=== PATIENT | female | born 1940 | race Caucasian/White ===

== ENCOUNTER → 2017-03-21 | Outpatient (REF) | payer MEDICARE, OTHER ==
[~2017-03-21] MED LIST: AMLO5TAB2 PO; ASPI1TAB PO; ATEN25TA PO; CALCTAB68 PO; CODCAP PO; Clopidogrel Bisulfate PO; LIPI20TA PO; VITA100066 PO; VITMTA PO
[2017-03-21 15:11] LABS: ANION GAP 7 MEQ/L (8-16); BLOOD UREA NITROGEN 15 MG/DL (7-18); CALCIUM LEVEL 9.3 MG/DL (8.8-10.2); CARBON DIOXIDE LEVEL 30 MEQ/L (21-32); CHLORIDE LEVEL 104 MEQ/L (98-107); CREATININE FOR GFR 0.87 MG/DL (0.55-1.02); GLOMERULAR FILTRATION RATE > 60.0 (>39); GLUCOSE, FASTING 98 MG/DL (83-110); POTASSIUM SERUM 4.7 MEQ/L (3.5-5.1); SODIUM LEVEL 141 MEQ/L (136-145)
== END ==
LOC: M SFHCPLAZ 10:49
PROVIDERS: ATTEND Family Medicine
DX: I11.9 Hypertensive heart disease without heart failure (principal)

== ENCOUNTER → 2017-04-27 | Outpatient (CLI) | payer MEDICARE, OTHER ==
--- NOTE | 2017-04-27 13:32 | REP ---
BILATERAL MAMMOGRAM: Bilateral mammography performed in the MLO and CC projections. Comparison 04/26/2016 as well as multiple other prior exams. There is mild to moderate scattered fibroglandular tissue bilaterally with no new mass or architectural distortion. On the left CC view the posteriorly and somewhat medially tiny calcific densities are seen. These are not seen on the MLO view. No other mass or clustered microcalcifications are seen. IMPRESSION: ACR 0 incomplete. Tiny calcific densities seen far posteriorly and medially on the left CC view. These are not seen on the left MLO view. Possible dermal calcifications. Recommend magnification views for further evaluation. At the time of the additional views the patient should thoroughly clean her breast skin to eliminate the possibility of any foreign material on the skin. This mammogram was interpreted with the aid of an FDA-approved computer-aided detection system. The patient states she/he had a clinical breast exam in 03/2017. The patient letter being requested is M0.
== END ==
LOC: M WHC 11:19
PROVIDERS: ATTEND Family Medicine
DX: Z12.31 Encounter for screening mammogram for malignant neoplasm of breast (principal)

== ENCOUNTER → 2017-05-03 | Outpatient (CLI) | payer MEDICARE, OTHER ==
--- NOTE | 2017-05-03 12:38 | REP ---
DIAGNOSTIC DIGITAL LEFT MAMMOGRAM: 05/03/2017 COMPARISON: Screening examination 04/27/2017, 04/26/2016. CLINICAL HISTORY: Calcific densities far posteriorly and medially on CC view of recent mammogram on the left, not on the MLO view. Further diagnostic workup of these calcifications needed. FINDINGS: Magnified CC imaging of the left breast posteromedial aspect with markers over the skin lesions or tags close to the chest wall. These correspond in location to the region of the calcifications seen on the mammogram. These magnified views do show calcifications along the two markers. The tangential view confirms that these calcifications are in the skin at the inframammary fold immediately adjacent to one of those mole markers. IMPRESSION: 1. BIRADS ACR category 2, benign. Benign finding. No evidence of malignancy. The mammographic finding on the 04/27/2017 screening examination is confirmed as skin calcifications in a skin mole or lesion on magnified CC and true ML tangential view. No evidence of malignancy. 2. Recommend annual followup mammography in 1 year. This mammogram was interpreted with the aid of an FDA-approved computer-aided detection system. A. Negative x-ray reports should not delay biopsy if a dominant or clinically suspicious mass is present. B. Four to eight percent of cancers are not identified by x-ray. C. Adenosis and dense breasts may obscure an underlying neoplasm. The patient states she/he had a clinical breast exam in March 2017. The patient letter being requested is M1. BI-RADS/ACR category 2 mammogram. Benign finding(s). Routine annual screening mammography (for women over age 40). Signed by Salvador Wren MD 05/03/2017 07:08 P
== END ==
LOC: M RAD 11:24
PROVIDERS: ATTEND Family Medicine
DX: R92.8 Other abnormal and inconclusive findings on diagnostic imaging of breast (principal)

== ENCOUNTER → 2017-10-03 | Outpatient (REF) | payer MEDICARE, OTHER | LOC: M LAB REF 18:12 | DX: C44.619 Basal cell carcinoma of skin of left upper limb, including shoulder (principal) | CPT/HCPCS: 88305 ==

== ENCOUNTER → 2018-03-14 | Outpatient (REF) | payer MEDICARE, OTHER ==
[2018-03-14 13:20] LABS: ANION GAP 8 MEQ/L (8-16); BLOOD UREA NITROGEN 18 MG/DL (7-18); CALCIUM LEVEL 9.6 MG/DL (8.8-10.2); CARBON DIOXIDE LEVEL 30 MEQ/L (21-32); CHLORIDE LEVEL 106 MEQ/L (98-107); CREATININE FOR GFR 1.02 MG/DL (0.55-1.30); GLOMERULAR FILTRATION RATE 55.7 (>39); GLUCOSE, FASTING 99 MG/DL (70-100); POTASSIUM SERUM 4.4 MEQ/L (3.5-5.1); SODIUM LEVEL 144 MEQ/L (136-145)
== END ==
LOC: M SFHCPLAZ 10:21
DX: I11.9 Hypertensive heart disease without heart failure (principal)
CPT/HCPCS: 80048

== ENCOUNTER → 2018-04-12 | Outpatient (REF) | payer MEDICARE, OTHER | LOC: M LAB REF 09:52 | DX: L90.5 Scar conditions and fibrosis of skin (principal) | CPT/HCPCS: 88305 ==

== ENCOUNTER → 2018-05-07 | Outpatient (CLI) | payer MEDICARE, OTHER | LOC: M RAD 10:44 | DX: Z12.31 Encounter for screening mammogram for malignant neoplasm of breast (principal) | CPT/HCPCS: 77067 ==

== ENCOUNTER → 2018-09-13 | Outpatient (REF) | payer MEDICARE, OTHER ==
[2018-09-13 13:55] LABS: ANION GAP 7 MEQ/L (8-16); BLOOD UREA NITROGEN 16 MG/DL (7-18); CALCIUM LEVEL 9.4 MG/DL (8.8-10.2); CARBON DIOXIDE LEVEL 30 MEQ/L (21-32); CHLORIDE LEVEL 105 MEQ/L (98-107); CHOLESTEROL LEVEL 201 MG/DL (<200); CREATININE FOR GFR 0.99 MG/DL (0.55-1.30); GLOMERULAR FILTRATION RATE 57.5 (>32); GLUCOSE, FASTING 106 MG/DL (70-100); HDL CHOLESTEROL 64 MG/DL (>40); LDL CHOLESTEROL 106 MG/DL (<100); NON-HDL-C 137 MG/DL; POTASSIUM SERUM 4.1 MEQ/L (3.5-5.1); SODIUM LEVEL 142 MEQ/L (136-145); TOTAL 25(OH) VITAMIN D 102.3 NG/ML (30.0-100.0); TRIGLYCERIDES LEVEL 157 MG/DL (<150)
== END ==
LOC: M SFHCPLAZ 10:49
DX: E78.5 Hyperlipidemia, unspecified (principal); I11.9 Hypertensive heart disease without heart failure; Z86.39 Personal history of other endocrine, nutritional and metabolic disease
CPT/HCPCS: 82306

== ENCOUNTER → 2018-12-25 | Outpatient (REF) | payer MEDICARE, OTHER ==
[~2018-12-25] MED LIST changes: -AMLO5TAB2 PO; +AMLO5TAB6 PO; -CODCAP PO; +CODCAP4 PO
== END ==
LOC: M SFHCPLAZ 10:20
PROVIDERS: ATTEND Nurse Practitioner Family
DX: Z86.39 Personal history of other endocrine, nutritional and metabolic disease (principal)

== ENCOUNTER → 2019-05-09 | Outpatient (CLI) | payer MEDICARE, OTHER ==
[~2019-05-09] MED LIST changes: -ASPI1TAB PO; +ASPI81TA26 PO; -CODCAP4 PO; +CODCAP5 PO
--- NOTE | 2019-05-09 11:49 | REPMRS ---
Patient History The patient states she has not had a clinical breast exam in over a year. No known family history of cancer. Took hormonal contraceptives for 2 years. Took unspecified hormones for 3 years. 3D TOMOSYNTHESIS WAS PERFORMED. The George Estrada lifetime risk for breast cancer is 1.9%. Digital Mammo Screening Bilat: May 09, 2019 - Exam #: [id number] Bilateral CC and MLO view(s) were taken. Technologist: Niecy Sears, Technologist Prior study comparison: May 07, 2018, bilateral digital mammo screening bilat performed at [facility]. May 03, 2017, left breast digital mammo diagnostic unilateral performed at [facility]. FINDINGS: The breast tissue is heterogeneously dense. This may lower the sensitivity of mammography. There has been no change in the appearance of the mammogram from the prior studies. There is a moderate amount of residual fibroglandular tissue which is fairly symmetric. There is no interval development of dominant mass, areas of architectural distortion, or clustered microcalcification typical of malignancy. Assessment: BI-RADS/ACR category 1 mammogram. Negative Mammogram. Recommendation Routine screening mammogram in 1 year (for women over age 40). This mammogram was interpreted with the aid of an FDA-approved computer-aided dectection system. Electronically Signed By: Pietro Argueta MD 05/09/19 [id number]
== END ==
LOC: M RAD 10:49
PROVIDERS: ATTEND Family Medicine
DX: Z12.31 Encounter for screening mammogram for malignant neoplasm of breast (principal)

== ENCOUNTER → 2019-10-09 | Outpatient (CLI) | payer MEDICARE, OTHER ==
[2019-10-09 10:59] LABS: CALCIUM LEVEL 9.8 MG/DL (8.8-10.2); CHOLESTEROL RISK RATIO 2.942 (<5); CREATININE FOR GFR 1.04 MG/DL (0.55-1.30); GLOMERULAR FILTRATION RATE 54.1 (>32); POTASSIUM SERUM 4.1 MEQ/L (3.5-5.1)
[2019-10-09 11:00] LABS: TOTAL 25(OH) VITAMIN D 66.8 NG/ML (30.0-100.0)
== END ==
LOC: M LAB 09:31
PROVIDERS: ATTEND Family Medicine
DX: I11.9 Hypertensive heart disease without heart failure (principal); E78.5 Hyperlipidemia, unspecified; Z86.39 Personal history of other endocrine, nutritional and metabolic disease; Z79.899 Other long term (current) drug therapy

== ENCOUNTER → 2019-10-11 | Outpatient (CLI) | payer MEDICARE, OTHER ==
[2019-10-11 10:38] LABS: HEMOGLOBIN A1c 6.2 %
== END ==
LOC: M LAB 09:27
PROVIDERS: ATTEND Family Medicine
DX: R73.01 Impaired fasting glucose (principal)

== ENCOUNTER → 2020-03-24 | Outpatient (CLI) | payer MEDICARE, OTHER ==
[2020-03-24 10:54] LABS: BLOOD UREA NITROGEN 18 MG/DL (7-18); CALCIUM LEVEL 9.4 MG/DL (8.8-10.2); CARBON DIOXIDE LEVEL 31 MEQ/L (21-32); CHLORIDE LEVEL 108 MEQ/L (98-107); CREATININE FOR GFR 0.88 MG/DL (0.55-1.30); GLOMERULAR FILTRATION RATE > 60.0 (>32); GLUCOSE, FASTING 100 MG/DL (70-100); POTASSIUM SERUM 4.4 MEQ/L (3.5-5.1); SODIUM LEVEL 142 MEQ/L (136-145)
[2020-03-24 10:59] LABS: HEMOGLOBIN A1c 6.3 %
== END ==
LOC: M LAB 09:46
PROVIDERS: ATTEND Family Medicine
DX: R73.03 Prediabetes (principal); I11.9 Hypertensive heart disease without heart failure

== ENCOUNTER → 2020-05-12 | Outpatient (CLI) | payer MEDICARE, OTHER ==
[~2020-05-12] MED LIST changes: +AMLO1TAB24 PO; -AMLO5TAB6 PO
--- NOTE | 2020-05-28 14:40 | REPMRS ---
Patient History The patient states she has not had a clinical breast exam in over a year. Patient is postmenopausal. No known family history of cancer. Took hormonal contraceptives for 2 years. Took unspecified hormones for 3 years. Digital Woman Screen Mammo: May 12, 2020 - Exam #: [id number] Bilateral CC and MLO view(s) were taken. Technologist: Connie James, Technologist Prior study comparison: May 09, 2019, bilateral digital mammo screening bilat, performed at [facility]. May 07, 2018, bilateral digital mammo screening bilat, performed at [facility]. May 03, 2017, left breast digital mammo diagnostic unilateral, performed at [facility]. FINDINGS: There are scattered fibroglandular densities. The Volpara volumetric breast density category is:B. There has been no change in the appearance of the mammogram from the prior studies. There is a mild amount of scattered fibroglandular density which is fairly symmetric. There is no interval development of dominant mass, architectural distortion, or grouped microcalcification suggestive of malignancy. 3-D tomosynthesis shows no additional findings. Assessment: BI-RADS/ACR category 1 mammogram. Negative Mammogram. Recommendation Routine screening mammogram of both breasts in 1 year (for women over age 40). This patient's Lifetime Breast Cancer Risk is estimated at 1.6 %. This mammogram was interpreted with the aid of an FDA-approved computer-aided dectection system. Electronically Signed By: Toby Bonilla MD 05/28/20 [id number]
--- NOTE | 2020-06-18 15:52 | DEXA ---
AP SPINE L1 - L4 1.480 2.3 4.2 LT FEMUR TOTAL 1.121 0.9 3.0 LT NECK 1.042 0.0 2.3 RT FEMUR TOTAL 1.096 0.7 2.8 RT NECK 0.983 -0.4 1.8 TOTAL BODY TOTAL OTHER COMMENTS: Normal Bone Densitometry of the spine and hips. The increased density of the spine does represent a significant change. The increased density of the left hip does represent a significant change. The decreased density of the right hip does represent significant change. The density of the spine has increased 6.2% since the initial exam on 01/24/2000. The increased 8.8% since the most recent exam on 04/16/2012. The density of the left hip has increased 4.1% since the initial exam on 01/24/2000. The density of the left hip has increased 3.9% since the most recent exam on 04/16/2012. The density of the right hip has increased 3.3% since the most recent exam on 01/24/2000. The density of the right hip has decreased 4.3% since the most recent exam on 04/16/2012. FOLLOW-UP: Recommendation for the next bone density exam: 5 years. ALBERTD
== END ==
LOC: M WHC 07:03
PROVIDERS: ATTEND Family Medicine
DX: Z12.31 Encounter for screening mammogram for malignant neoplasm of breast (principal); M85.88 Other specified disorders of bone density and structure, other site; M85.851 Other specified disorders of bone density and structure, right thigh; M85.852 Other specified disorders of bone density and structure, left thigh; M81.0 Age-related osteoporosis without current pathological fracture

== ENCOUNTER → 2021-03-15 | Outpatient (CLI) | payer MEDICARE, OTHER ==
[2021-03-15 12:23] LABS: BLOOD UREA NITROGEN 15 MG/DL (7-18); CALCIUM LEVEL 9.4 MG/DL (8.8-10.2); CARBON DIOXIDE LEVEL 31 MEQ/L (21-32); CHLORIDE LEVEL 107 MEQ/L (98-107); CHOLESTEROL LEVEL 181 MG/DL (<200); CHOLESTEROL RISK RATIO 2.742 (<5); CREATININE FOR GFR 0.86 MG/DL (0.55-1.30); GLOMERULAR FILTRATION RATE > 60.0 (>32); GLUCOSE, FASTING 111 MG/DL (70-100); HDL CHOLESTEROL 66 MG/DL (>40); LDL CHOLESTEROL 87 MG/DL (<100); NON-HDL-C 115 MG/DL; POTASSIUM SERUM 4.9 MEQ/L (3.5-5.1); SODIUM LEVEL 142 MEQ/L (136-145); TRIGLYCERIDES LEVEL 142 MG/DL (<150)
[2021-03-15 15:16] LABS: HEMOGLOBIN A1c 5.8 %
== END ==
LOC: M LAB 10:50
PROVIDERS: ATTEND Family Medicine
DX: I11.9 Hypertensive heart disease without heart failure (principal); E78.2 Mixed hyperlipidemia; R73.03 Prediabetes

== ENCOUNTER → 2021-09-13 | Outpatient (CLI) | payer MEDICARE, OTHER ==
[2021-09-13 12:19] LABS: BLOOD UREA NITROGEN 15 MG/DL (7-18); CALCIUM LEVEL 9.8 MG/DL (8.8-10.2); CARBON DIOXIDE LEVEL 32 MEQ/L (21-32); CHLORIDE LEVEL 105 MEQ/L (98-107); CREATININE FOR GFR 0.91 MG/DL (0.55-1.30); GLOMERULAR FILTRATION RATE > 60.0 (>32); GLUCOSE, FASTING 114 MG/DL (70-100); POTASSIUM SERUM 4.3 MEQ/L (3.5-5.1); SODIUM LEVEL 140 MEQ/L (136-145)
== END ==
LOC: M LAB 11:07
PROVIDERS: ATTEND Family Medicine
DX: I11.9 Hypertensive heart disease without heart failure (principal)

== ENCOUNTER → 2022-05-31 | Outpatient (CLI) | payer MEDICARE, OTHER ==
[2022-05-31 12:53] LABS: CHOLESTEROL RISK RATIO 2.705 (<5)
[2022-05-31 13:28] LABS: TOTAL 25(OH) VITAMIN D 74.3 NG/ML (30.0-100.0)
== END ==
LOC: M LAB 11:18
PROVIDERS: ATTEND Nurse Practitioner Adult Health
DX: R73.03 Prediabetes (principal); E78.2 Mixed hyperlipidemia; Z86.39 Personal history of other endocrine, nutritional and metabolic disease; Z79.899 Other long term (current) drug therapy

== ENCOUNTER → 2022-06-23 | Outpatient (CLI) | payer MEDICARE, OTHER | LOC: M WHC 10:48 | PROVIDERS: ATTEND Nurse Practitioner Adult Health | DX: Z12.31 Encounter for screening mammogram for malignant neoplasm of breast (principal) ==

== ENCOUNTER → 2023-01-23 | Outpatient (CLI) | payer MEDICARE, OTHER ==
[2023-01-23 12:23] LABS: ALBUMIN 3.8 G/DL (3.2-5.2); ALKALINE PHOSPHATASE 94 U/L (46-116); ALT/SGPT 26 U/L (7.0-40); AST/SGOT 26 U/L (<34); BILIRUBIN,TOTAL 0.4 MG/DL (0.3-1.2); BLOOD UREA NITROGEN 13 MG/DL (9-23); CALCIUM LEVEL 9.5 MG/DL (8.3-10.6); CARBON DIOXIDE LEVEL 30 MMOL/L (20-31); CHLORIDE LEVEL 106 MMOL/L (98-107); CHOLESTEROL LEVEL 175 MG/DL (<200); CHOLESTEROL RISK RATIO 2.69 (<5); CREATININE FOR GFR 0.84 MG/DL (0.55-1.30); GLOMERULAR FILTRATION RATE > 60.0 (>32); GLUCOSE, FASTING 100 MG/DL (74-106); HDL CHOLESTEROL 64.9 MG/DL (>40); LDL CHOLESTEROL 80.1 MG/DL (<100); NON-HDL-C 110.1 MG/DL; POTASSIUM SERUM 4.4 MMOL/L (3.5-5.1); SODIUM LEVEL 141 MMOL/L (136-145); TOTAL PROTEIN 7.2 G/DL (5.7-8.2); TRIGLYCERIDES LEVEL 150 MG/DL (<150)
[2023-01-23 12:25] LABS: TOTAL 25(OH) VITAMIN D 67.9 NG/ML (20.0-100.0)
[2023-01-23 15:11] LABS: HEMOGLOBIN A1c 5.9 % (4.0-6.0)
== END ==
LOC: M LAB 11:03
PROVIDERS: ATTEND Nurse Practitioner Adult Health
DX: R73.03 Prediabetes (principal); E78.2 Mixed hyperlipidemia; Z86.39 Personal history of other endocrine, nutritional and metabolic disease; Z79.899 Other long term (current) drug therapy

== ENCOUNTER → 2023-07-25 | Outpatient (CLI) | payer MEDICARE, OTHER ==
[2023-07-25 11:53] LABS: HEMATOCRIT 36.8 % (36.0-47.0); HEMOGLOBIN 12.1 g/dl (12.0-15.5); MEAN CORPUSCULAR HEMOGLOBIN 30.9 pg (27.0-33.0); MEAN CORPUSCULAR HGB CONC 32.9 g/dl (32.0-36.5); MEAN CORPUSCULAR VOLUME 94.1 fl (80.0-96.0); PLATELET COUNT, AUTOMATED 175 10^3/uL (150-450); RED BLOOD COUNT 3.91 10^6/uL (4.00-5.40); WHITE BLOOD COUNT 10.3 10^3/uL (4.0-10.0)
[2023-07-25 12:21] LABS: HEMOGLOBIN A1c 5.8 % (4.0-6.0)
[2023-07-25 12:22] LABS: ALBUMIN 3.9 G/DL (3.2-5.2); ALKALINE PHOSPHATASE 94 U/L (46-116); ALT/SGPT 20 U/L (7.0-40); AST/SGOT 21 U/L (<34); BILIRUBIN,TOTAL 0.6 MG/DL (0.3-1.2); BLOOD UREA NITROGEN 15 MG/DL (9-23); CALCIUM LEVEL 9.7 MG/DL (8.3-10.6); CARBON DIOXIDE LEVEL 30 MMOL/L (20-31); CHLORIDE LEVEL 104 MMOL/L (98-107); CHOLESTEROL LEVEL 165 MG/DL (<200); CHOLESTEROL RISK RATIO 2.56 (<5); CREATININE FOR GFR 0.89 MG/DL (0.55-1.30); GLOMERULAR FILTRATION RATE > 60.0 (>32); GLUCOSE, FASTING 99 MG/DL (74-106); HDL CHOLESTEROL 64.3 MG/DL (>40); LDL CHOLESTEROL 73.3 MG/DL (<100); NON-HDL-C 100.7 MG/DL; POTASSIUM SERUM 4.2 MMOL/L (3.5-5.1); SODIUM LEVEL 142 MMOL/L (136-145); TRIGLYCERIDES LEVEL 137 MG/DL (<150)
[2023-07-25 12:23] LABS: TOTAL 25(OH) VITAMIN D 65.2 NG/ML (20.0-100.0)
== END ==
LOC: M LAB 10:36
PROVIDERS: ATTEND Nurse Practitioner Adult Health
DX: R73.03 Prediabetes (principal); E78.00 Pure hypercholesterolemia, unspecified

== ENCOUNTER → 2024-06-13 | Outpatient (CLI) | payer MEDICARE, OTHER ==
[~2024-06-13] MED LIST changes: +COD1CAPS3 PO; -CODCAP5 PO
[2024-06-13 17:49] LABS: BASO # 0.1 10^3/uL (0.0-0.2); BASO % 0.5 % (0.0-1.0); EOS # 0.2 10^3/uL (0.0-0.5); EOS % 1.6 % (0.0-3.0); HEMATOCRIT 40.6 % (36.0-47.0); LYMPH # 1.8 10^3/uL (1.5-5.0); LYMPH % 19.7 % (24.0-44.0); MEAN CORPUSCULAR HEMOGLOBIN 30.4 pg (27.0-33.0); MEAN CORPUSCULAR VOLUME 94.9 fl (80.0-96.0); MONO # 0.6 10^3/uL (0.0-0.8); MONO % 6.7 % (2.0-8.0); NEUTROPHILS # 6.5 10^3/uL (1.5-8.5); NEUTROPHILS % 71.2 % (36.0-66.0); PLATELET COUNT, AUTOMATED 282 10^3/uL (150-450); RED BLOOD COUNT 4.28 10^6/uL (4.00-5.40); WHITE BLOOD COUNT 9.1 10^3/uL (4.0-10.0)
[2024-06-13 18:03] LABS: THYROID STIMULATING HORMONE 2.133 uIU/ML (0.55-4.78)
[2024-06-13 18:04] LABS: FREE T4 1.19 NG/DL (0.89-1.76)
[2024-06-13 18:05] LABS: FERRITIN 52.5 NG/ML (7.3-270.7)
[2024-06-13 18:06] LABS: VITAMIN B12 LEVEL 1008 PG/ML (211-911)
[2024-06-13 18:07] LABS: ALBUMIN 3.9 G/DL (3.2-5.2); ALKALINE PHOSPHATASE 99 U/L (46-116); ALT/SGPT 23 U/L (7.0-40); AST/SGOT 22 U/L (<34); BILIRUBIN,TOTAL 0.3 MG/DL (0.3-1.2); BLOOD UREA NITROGEN 20 MG/DL (9-23); CALCIUM LEVEL 10.2 MG/DL (8.3-10.6); CARBON DIOXIDE LEVEL 29 MMOL/L (20-31); CHLORIDE LEVEL 107 MMOL/L (98-107); CREATININE FOR GFR 0.81 MG/DL (0.55-1.30); GLOMERULAR FILTRATION RATE > 60.0 (>32); GLUCOSE, FASTING 117 MG/DL (74-106); POTASSIUM SERUM 4.5 MMOL/L (3.5-5.1); SODIUM LEVEL 141 MMOL/L (136-145); TOTAL PROTEIN 7.5 G/DL (5.7-8.2)
== END ==
LOC: M PLALAB 16:28
PROVIDERS: ATTEND Family Medicine
DX: E78.2 Mixed hyperlipidemia (principal); I10 Essential (primary) hypertension; Z86.39 Personal history of other endocrine, nutritional and metabolic disease

== ENCOUNTER 2024-06-17 08:27 | Day surgery (SDC) | payer MEDICARE, OTHER ==
[~2024-06-17] VITALS: Ht 162.6 cm; Wt 63.5 kg
[~2024-06-17 08:27] MED LIST changes: +LR 1,000 ML IV SCH
[2024-06-17] MEDS: ATROPINE SULFATE 1% OPHTH SOLN 2ML BTL OD SCH (09:23)
[2024-06-17] MEDS: FLURBIPROFEN 0.03% OPHTH SOLN 2.5 ML OD SCH (09:23)
[2024-06-17] MEDS: PHENYLEPHRINE 2.5% OPHTH SOL 2ML OD SCH (09:23)
[2024-06-17] MEDS: TETRACAINE 0.5% OPHTH SOLN 4ML OD SCH (09:24)
[2024-06-17] MEDS ORDERED: MIDAZOLAM INJ 2MG/2ML VIAL As Ordered ONE (10:31)
[2024-06-17] MEDS: LIDOCAINE 1% SDV 5ML VIAL As Ordered ONE (10:36)
[2024-06-17] MEDS: CEFUROXIME 1MG/0.1ML INTRACAMERAL INJ As Ordered ONE (10:43)
[2024-06-17 10:50] VITALS: BP 143/85; TEMP 98.1; O2SAT 95
== END 2024-06-17 11:14 | disposition home or self-care (01) ==
LOC: M SDC 08:27
PROVIDERS: ATTEND Ophthalmology
DX: H25.11 Age-related nuclear cataract, right eye (principal); Z86.73 Personal history of transient ischemic attack (TIA), and cerebral infarction without residual deficits; Z79.899 Other long term (current) drug therapy
CPT/HCPCS: 66984; J0697; J2250; V2632

== ENCOUNTER 2024-06-24 10:06 | Day surgery (SDC) | payer MEDICARE, OTHER ==
[~2024-06-24] VITALS: Ht 162.6 cm; Wt 64.8 kg
[2024-06-24] MEDS: ATROPINE SULFATE 1% OPHTH SOLN 2ML BTL OS SCH (10:25)
[2024-06-24] MEDS: TETRACAINE 0.5% OPHTH SOLN 4ML OS SCH (10:25)
[2024-06-24] MEDS: FLURBIPROFEN 0.03% OPHTH SOLN 2.5 ML OS SCH (10:25)
[2024-06-24] MEDS: PHENYLEPHRINE 2.5% OPHTH SOL 2ML OS SCH (10:25)
[2024-06-24] MEDS ORDERED: MIDAZOLAM INJ 2MG/2ML VIAL As Ordered ONE (10:41)
[2024-06-24] MEDS ORDERED: fentaNYL 100 MCG/2 ML INJECTION As Ordered ONE (10:42)
[2024-06-24] MEDS: LIDOCAINE 1% SDV 5ML VIAL As Ordered ONE (12:11)
[2024-06-24] MEDS: CEFUROXIME 1MG/0.1ML INTRACAMERAL INJ As Ordered ONE (12:14)
[2024-06-24 12:24] VITALS: BP 192/89; TEMP 97.6; O2SAT 95
== END 2024-06-24 12:40 | disposition home or self-care (01) ==
LOC: M SDC 10:06
PROVIDERS: ATTEND Ophthalmology
DX: H25.12 Age-related nuclear cataract, left eye (principal); Z86.73 Personal history of transient ischemic attack (TIA), and cerebral infarction without residual deficits; Z79.899 Other long term (current) drug therapy
CPT/HCPCS: 66984; J0697; J2250; J3010; V2632

== ENCOUNTER → 2024-07-16 | Outpatient (CLI) | payer MEDICARE, OTHER ==
[~2024-07-16] MED LIST changes: -LR 1,000 ML IV SCH
[2024-07-16 11:06] LABS: HEMATOCRIT 39.1 % (36.0-47.0); HEMOGLOBIN 12.4 g/dl (12.0-15.5); MEAN CORPUSCULAR HEMOGLOBIN 30.6 pg (27.0-33.0); MEAN CORPUSCULAR HGB CONC 31.7 g/dl (32.0-36.5); MEAN CORPUSCULAR VOLUME 96.5 fl (80.0-96.0); PLATELET COUNT, AUTOMATED 241 10^3/uL (150-450); RED BLOOD COUNT 4.05 10^6/uL (4.00-5.40); WHITE BLOOD COUNT 9.6 10^3/uL (4.0-10.0)
[2024-07-16 11:37] LABS: ALBUMIN 3.6 G/DL (3.2-5.2); ALKALINE PHOSPHATASE 95 U/L (46-116); ALT/SGPT 25 U/L (7.0-40); AST/SGOT 21 U/L (<34); BILIRUBIN,TOTAL 0.4 MG/DL (0.3-1.2); BLOOD UREA NITROGEN 14 MG/DL (9-23); CALCIUM LEVEL 10.2 MG/DL (8.3-10.6); CARBON DIOXIDE LEVEL 30 MMOL/L (20-31); CHLORIDE LEVEL 108 MMOL/L (98-107); CHOLESTEROL LEVEL 192 MG/DL (<200); CHOLESTEROL RISK RATIO 3.22 (<5); CREATININE FOR GFR 0.85 MG/DL (0.55-1.30); GLOMERULAR FILTRATION RATE > 60.0 (>32); GLUCOSE, FASTING 97 MG/DL (74-106); HDL CHOLESTEROL 59.6 MG/DL (>40); NON-HDL-C 132.4 MG/DL; POTASSIUM SERUM 4.5 MMOL/L (3.5-5.1); SODIUM LEVEL 144 MMOL/L (136-145); TOTAL 25(OH) VITAMIN D 62.1 NG/ML (20.0-100.0); TOTAL PROTEIN 7.2 G/DL (5.7-8.2); TRIGLYCERIDES LEVEL 142 MG/DL (<150)
== END ==
LOC: M LAB 10:14
PROVIDERS: ATTEND Nurse Practitioner Adult Health
DX: Z86.39 Personal history of other endocrine, nutritional and metabolic disease (principal); I11.9 Hypertensive heart disease without heart failure; R73.03 Prediabetes; E78.2 Mixed hyperlipidemia; Z79.899 Other long term (current) drug therapy

== ENCOUNTER → 2024-07-22 | Outpatient (REF) | payer MEDICARE, OTHER | LOC: M LAB REF 20:50 | PROVIDERS: ATTEND Physician Assistant Medical | DX: B34.9 Viral infection, unspecified (principal) ==

== ENCOUNTER → 2025-01-21 | Outpatient (CLI) | payer MEDICARE, OTHER ==
[2025-01-21 10:32] LABS: HEMATOCRIT 38.9 % (36.0-47.0); HEMOGLOBIN 12.5 g/dl (12.0-15.5); MEAN CORPUSCULAR HEMOGLOBIN 30.9 pg (27.0-33.0); MEAN CORPUSCULAR HGB CONC 32.1 g/dl (32.0-36.5); MEAN CORPUSCULAR VOLUME 96.3 fl (80.0-96.0); PLATELET COUNT, AUTOMATED 225 10^3/uL (150-450); RED BLOOD COUNT 4.04 10^6/uL (4.00-5.40); WHITE BLOOD COUNT 6.5 10^3/uL (4.0-10.0)
[2025-01-21 10:48] LABS: HEMOGLOBIN A1c 5.8 % (4.0-6.0)
[2025-01-21 11:00] LABS: ALBUMIN 3.8 G/DL (3.2-5.2); BILIRUBIN,TOTAL 0.4 MG/DL (0.3-1.2); CHOLESTEROL RISK RATIO 2.76 (<5); CREATININE FOR GFR 0.93 MG/DL (0.55-1.30); GLOMERULAR FILTRATION RATE 59.9 (>32); HDL CHOLESTEROL 66.1 MG/DL (>40); LDL CHOLESTEROL 85.7 MG/DL (<100); NON-HDL-C 116.9 MG/DL; POTASSIUM SERUM 4.4 MMOL/L (3.5-5.1); TOTAL PROTEIN 7.2 G/DL (5.7-8.2)
== END ==
LOC: M LAB 10:04
PROVIDERS: ATTEND Nurse Practitioner Adult Health
DX: R73.03 Prediabetes (principal); Z86.39 Personal history of other endocrine, nutritional and metabolic disease; I11.9 Hypertensive heart disease without heart failure; E78.2 Mixed hyperlipidemia